=== PATIENT | male | born 1990 | race Caucasian/White ===

== ENCOUNTER 2024-12-21 09:10 | Emergency (ER) | payer BC ==
[2024-12-21] MEDS ORDERED: FAMOTIDINE 20 MG/2 ML VIAL IV ONE (09:52)
[2024-12-21 10:01] LABS: Absolute Lymphocytes (CBC) 1.7 K/uL (0.7-4.9); Hematocrit 41.3 % (39.6-49.0); Hemoglobin 14.4 g/dL (13.6-17.9); MCH 30.7 pg (27.0-35.0); MCHC 34.8 g/dL (32.0-36.0); MCV 88.4 fL (80-100); MPV 8.3 fL (7.6-11.3); Nucleated RBC Absolute Count 0.0 (0-0); Nucleated Red Blood Cells % 0.1 % (0-0); RBC Red Blood Cell Count 4.68 M/uL (4.33-5.43); White Blood Count 6.70 thou/uL (4.3-10.9)
[2024-12-21 10:27] LABS: Anion Gap 9.4 mEq/L (5.0-15.0); Glucose Level 125.0 mg/dL (74-106); Potassium 4.4 mEq/L (3.5-5.1)
[2024-12-21 10:28] LABS: ALT/SGPT 84.0 U/L (16-61); AST/SGOT 25.0 U/L (15-37); Albumin 3.9 g/dL (3.4-5.0); Albumin/Globulin Ratio 1.0 (1.1-1.8); Alkaline Phosphatase 61.0 U/L (45-117); BUN Blood Urea Nitrogen 24.0 mg/dL (7-18); Globulin 4.1 g/dL (2.3-3.5); Lipase 50.0 U/L (13-75)
--- NOTE | 2024-12-21 10:55 | RAD REPORT ---
EXAMINATION: CT ABDOMEN AND PELVIS WITHOUT CONTRAST CLINICAL INDICATION: Nausea / vomiting;GI bleed TECHNIQUE: CT abdomen and pelvis was performed, without IV contrast, as per department protocol. Axia l, sagittal and coronal reconstructions were obtained. One or more of the following dose reduction techniques were used: Automated exposure control, adjustment of the mA and kV according to the patien t size, and iterative reconstruction. Unless otherwise specified, incidental findings do not require dedicated imaging follow-up. COMPARISON: No prior exam. FINDINGS: The lack of intravenous contrast limits the sensitivity of this exam for evaluation of solid visceral organs, vascular structures, and retroperitoneum. LOWER CHEST: The visualized lung bases are clear. LIVER:Significant fatty liver with hepatomegaly present. No focal lesion or biliary dilitation. Keshawn sly unremarkable gallbladder. SPLEEN: Normal size. No focal lesion. PANCREAS: No mass, ductal dilation, or irish-pancreatic fluid. ADRENALS: Normal; no mass. KIDNEYS AND URETERS: Normal size and contour. No hydronephrosis. URINARY BLADDER: Normal contour. GASTROINTESTINAL TRACT: No evidence of bowel obstruction, significant free fluid, free air or abscess . APPENDIX: Normal appendix. LYMPH NODES: No lymphadenopathy. MUSCULOSKELETAL: No acute or suspicious osseous abnormality. IMPRESSION: No acute abnormalities in the abdomen or pelvis, with evaluation limited by lack of IV contrast. Advanced fatty liver.
--- NOTE | 2024-12-21 10:57 | RAD REPORT ---
EXAM: CTA of the abdomen and pelvis HISTORY: Pain, bleeding GI BLEED COMPARISON: None TECHNIQUE: Multiple contiguous axial images were obtained a CTA of the abdomen and pelvis with contra st per angiographic protocol. This involves 3D reconstructions, MIPs, volume rendered images and/or shaded surface rendering. One or more of the following dose reduction techniques were used: Automated exposure control, adjustment of the mA and/or kV according to patient size, and/or iterative reconstruction. Unless otherwise specified, incidental findings do not require dedicated imaging foll ow-up. Sagittal and coronal 3-D MIP reformats were performed. FINDINGS: DESCENDING THORACIC AORTA: Included infeior aspect demonstrates normal caliber without evidence of d issection or aneurysmal dilatation. ABDOMINAL AORTA: Normal caliber without evidence of dissection or aneurysmal dilatation. CELIAC TRUNK: Patent. SMA: Patent NALINI: Patent RENAL ARTERIES: Patent. No significant stenosis. Small bilateral accessory renal arteries. LIVER: Advanced fatty infiltration.. SPLEEN: Unremarkable. PANCREAS: Unremarkable. KIDNEYS: Unremarkable. ADRENALS: Unremarkable. BOWEL: Unremarkable. RETROPERITONEUM: No lymphadenopathy. BONES: Unremarkable ADDITIONAL FINDINGS: Small fat-containing umbilical hernia. IMPRESSION: No significant flow abnormality is detected.
--- NOTE | 2024-12-21 11:46 | EDPHYS ---
Physician Documentation [facility] Name: Shad Garcia Age: 34 yrs Sex: Male : 1990 Arrival Date: 12/21/2024 Time: 09:10 Bed 8 Private MD: ED Physician Cindy Romero HPI: 12/21 11:46 This 34 yrs old Male presents to ER via Ambulatory with complaints of Bloody gb1 Stools, Vomiting - blood. 11:48 This 34 yrs old Male presents to ER via Ambulatory with complaints of Bloody gb1 Stools, Vomiting - blood. 11:48 34-year-old male comes with dark stools and blood-tinged sputum but is also was dark. gb1 He drank 5 to 616 ounce beers last evening and also ate some Oreos along with that. He denies any pain at this time and denies any bright red blood per rectum. He has otherwise no fever or chills he has history of hypertension anxiety and Rhina-Yost tear.. Historical: - Allergies: 09:35 No Known Allergies; ss - Home Meds: 09:35 Lisinopril [Active]; Clonazepam Oral [Active]; Protonix [Active]; ss - PMHx: 09:35 hypertension; Anxiety; Rhina-Yost tear; ss - PSHx: 09:35 None; ss - Immunization history:: Adult Immunizations up to date. - Infectious Disease History:: Denies. - Social history:: Smoking status: Patient denies any tobacco usage or history of. Exam: 11:46 Constitutional: This is a well developed, well nourished patient who is awake, alert, gb1 and in no acute distress. Head/Face: Normocephalic, atraumatic. Eyes: Pupils equal round and reactive to light, extra-ocular motions intact. Lids and lashes normal. Conjunctiva and sclera are non-icteric and not injected. Cornea within normal limits. Periorbital areas with no swelling, redness, or edema. ENT: Nares patent. No nasal discharge, no septal abnormalities noted. Tympanic membranes are normal and external auditory canals are clear. Oropharynx with no redness, swelling, or masses, exudates, or evidence of obstruction, uvula midline. Mucous membranes moist. Neck: Trachea midline, no thyromegaly or masses palpated, and no cervical lymphadenopathy. Supple, full range of motion without nuchal rigidity, or vertebral point tenderness. No Meningismus. Chest/axilla: Normal chest wall appearance and motion. Nontender with no deformity. No lesions are appreciated. Cardiovascular: Regular rate and rhythm with a normal S1 and S2. No gallops, murmurs, or rubs. Normal PMI, no JVD. No pulse deficits. Respiratory: Lungs have equal breath sounds bilaterally, clear to auscultation and percussion. No rales, rhonchi or wheezes noted. No increased work of breathing, no retractions or nasal flaring. Abdomen/GI: Soft, non-tender, with normal bowel sounds. No distension or tympany. No guarding or rebound. No evidence of tenderness throughout. Skin: Warm, dry with normal turgor. Normal color with no rashes, no lesions, and no evidence of cellulitis. MS/ Extremity: Pulses equal, no cyanosis. Neurovascular intact. Full, normal range of motion. Vital Signs: 09:30 BP 145 / 87; Pulse 95; Resp 16; Temp 98.2(O); Pulse Ox 99% on R/A; Weight 104.33 kg; ss Height 6 ft. 4 in. ; Pain 0/10; 11:00 BP 154 / 79; Pulse 95; Resp 18; Pulse Ox 100% on R/A; mb9 12:00 BP 135 / 89; Pulse 91; Resp 17; Pulse Ox 97% ; Pain 0/10; ll1 09:30 Body Mass Index 28.00 (104.33 kg, 193.04 cm) ss 09:30 Pain Scale: Adult ss 12:00 Pain Scale: Adult ll1 MDM: 09:22 Medical Screening Exam initiated gb1 11:46 Data reviewed: vital signs, nurses notes. gb1 11:48 ED course: 34-year-old male with chief complaint of bloody stools and vomiting blood. gb1 He has a history of a Rhina-Yost tear and drank heavily last night alcohol and vomited as well as had some dark liquid stool. Concern for alcoholic gastritis versus Rhina-Yost tear versus peptic ulcer disease with slow GI bleed. H\T\H is stable otherwise patient is vitally stable and my plan is to discharge him home with outpatient follow-up for upper and lower endoscopy by gastroenterology Dr. Puentes. Patient is compliant with this plan of care discharge and we discussed alcohol cessation and diet modification to prevent acute gastritic symptoms-- as well to which he is compliant to prior to discharge him today.. 12/21 09:45 Order name: CBC with Diff; Complete Time: 10:08 gb1 12/21 09:45 Order name: CMP; Complete Time: 10:31 gb1 12/21 09:45 Order name: Lipase; Complete Time: 10:31 gb1 12/21 09:59 Order name: Abdomen Angio; Complete Time: 11:37 EDMS 12/21 09:59 Order name: Pelvis Angio; Complete Time: 11:37 EDMS 12/21 09:59 Order name: Abdomen ; Complete Time: 11:37 EDNH 12/21 09:45 Order name: IV Saline Lock; Complete Time: 09:53 gb1 12/21 09:45 Order name: Labs collected and sent; Complete Time: 09:53 gb Administered Medications: 09:53 Drug: Famotidine IVP 20 mg IVP once; dilute with 10 mL 0.9% NaCl; give over 2 minutes mb9 Route: IVP; Site: right antecubital; 12:01 Follow up: Response: No adverse reaction ll1 Disposition Summary: 12/21/24 11:45 Discharge Ordered Notes: Location: Home gb1 Condition: Stable gb1 Diagnosis - Alcoholic gastritis with bleeding gb1 Followup: gb1 - With: Osvaldo Delacruz MD - When: 1 week - Reason: Further diagnostic work-up Discharge Instructions: - Discharge Summary Sheet gb1 - Gastritis, Adult, [id number] gb1 - Upper Gastrointestinal Bleeding gb1 Forms: - Work release form bd - Medication Reconciliation Form gb1 - Antibiotic Education gb1 - Prescription Opioid Use gb1 - Patient Portal Instructions gb1 - Leadership Thank You Letter gb1 Signatures: Dispatcher [employer] Yenni Silverio RN RN ss Wilkerson, Mary Beth RN RN mb9 Cindy Romero MD MD gb1 Moe Barbosa RN ll1 Corrections: (The following items were deleted from the chart) 09:45 09:45 CBC+H.LAB.BRZ ordered. EDMS EDMS 09:45 09:45 COMPREHENSIVE METABOLIC PANEL+C.LAB.BRZ ordered. EDMS EDMS 09:45 09:45 LIPASE+C.LAB.BRZ ordered. EDMS EDMS 09:45 09:45 Abdomen Pelvis W Con+CT.RAD.BRZ ordered. EDMS EDMS
--- NOTE | 2024-12-21 11:46 | ER ---
Nurse's Notes [facility] Name: Shad Garcia Age: 34 yrs Sex: Male : 1990 Arrival Date: 12/21/2024 Time: 09:10 Bed 8 Private MD: Diagnosis: Alcoholic gastritis with bleeding Presentation: 12/21 09:30 Chief complaint: Patient states: "I woke up this morning and vomited once and it was ss black. I ate oreos, so I thought it was just that, but I had a BM and it was normal, but then I had another one at 0830 and it was diarrhea and pure black. It may just be oreos, but I have a hx of a Rhina-Yost tear.". Coronavirus screen: Client denies travel out of the [place] in the last 14 days. Ebola Screen: Patient denies exposure to infectious person. Patient denies travel to an Ebola-affected area in the 21 days before illness onset. Initial Sepsis Screen: Does the patient meet any 2 criteria? No. Patient's initial sepsis screen is negative. Does the patient have a suspected source of infection? No. Patient's initial sepsis screen is negative. Risk Assessment: Do you want to hurt yourself or someone else? Patient reports no desire to harm self or others. Onset of symptoms was December 21, 2024. 09:30 Method Of Arrival: Ambulatory ss 09:30 Acuity: NASIMA 3 ss Historical: - Allergies: 09:35 No Known Allergies; ss - Home Meds: 09:35 Lisinopril [Active]; Clonazepam Oral [Active]; Protonix [Active]; ss - PMHx: 09:35 hypertension; Anxiety; Rhina-Yost tear; ss - PSHx: 09:35 None; ss - Immunization history:: Adult Immunizations up to date. - Infectious Disease History:: Denies. - Social history:: Smoking status: Patient denies any tobacco usage or history of. Screenin:25 [facility] Fall Risk Assessment (Adult) History of falling in the last 3 months, mb9 including since admission No falls in past 3 months (0 pts) Confusion or Disorientation No (0 pts) Intoxicated or Sedated No (0 pts) Impaired Gait No (0 pts) Mobility Assist Device Used No (0 pt) Altered Elimination No (0 pt) Score/Fall Risk Level 0 - 2 = Low Risk Oriented to surroundings, Maintained a safe environment, Educated pt \\T\\ family on fall prevention, incl call for assistance when getting out of bed. Abuse screen: Denies threats or abuse. Nutritional screening: No deficits noted. Tuberculosis screening: No symptoms or risk factors identified. Assessment: 09:39 General: Appears in no apparent distress. Behavior is calm, cooperative. Pain: Denies mb9 pain. Neuro: Sin Agitation-Sedation Scale (RASS): 0 - Alert and Calm Level of Consciousness is awake, alert, obeys commands, Oriented to person, place, time, situation, Appropriate for age. Cardiovascular: Heart tones S1 S2 present Patient's skin is warm and dry. Respiratory: Airway is patent Respiratory effort is even, unlabored, Respiratory pattern is regular, symmetrical, Breath sounds are clear bilaterally. GI: Abdomen is round non-distended, Bowel sounds hyperactive in right upper quadrant, left upper quadrant, right lower quadrant and left lower quadrant Abd is soft and non tender X 4 quads. Reports diarrhea, bloody stool, nausea. : No signs and/or symptoms were reported regarding the genitourinary system. EENT: No signs and/or symptoms were reported regarding the EENT system. Derm: Skin is pink, warm \\T\\ dry. Musculoskeletal: Range of motion: intact in all extremities. Vital Signs: 09:30 BP 145 / 87; Pulse 95; Resp 16; Temp 98.2(O); Pulse Ox 99% on R/A; Weight 104.33 kg; ss Height 6 ft. 4 in. ; Pain 0/10; 11:00 BP 154 / 79; Pulse 95; Resp 18; Pulse Ox 100% on R/A; mb9 12:00 BP 135 / 89; Pulse 91; Resp 17; Pulse Ox 97% ; Pain 0/10; ll1 09:30 Body Mass Index 28.00 (104.33 kg, 193.04 cm) ss 09:30 Pain Scale: Adult ss 12:00 Pain Scale: Adult ll1 ED Course: 09:15 Patient arrived in ED. im 09:17 Cindy Romero MD is Attending Physician. gb1 09:23 Myesha Felipe RN is Primary Nurse. mb9 09:25 Arm band placed on. mb9 09:25 Placed in gown. Bed in low position. Call light in reach. Side rails up X 1. Provided mb9 Education on: press call light if needing anything. Client placed on continuous cardiac and pulse oximetry monitoring. NIBP monitoring applied. packing room supervisor on. Door closed. Noise minimized. Warm blanket given. Pillow given. 09:35 Triage completed. ss 09:39 Initial lab(s) drawn, by me, sent to lab. Inserted saline lock: 20 gauge in right mb9 antecubital area, using aseptic technique. Blood collected. Flushed with 10 mL NS. 09:40 No provider procedures requiring assistance completed. mb9 09:53 CBC with Diff Sent. mb9 09:53 CMP Sent. mb9 09:53 Lipase Sent. mb9 10:28 Abdomen Angio In Process Unspecified. EDMS 10:28 Pelvis Angio In Process Unspecified. EDMS 10:28 Abdomen In Process Unspecified. EDMS 11:45 Osvaldo Delacruz MD is Referral Physician. gb1 12:01 IV discontinued, intact, bleeding controlled, No redness/swelling at site. Pressure ll1 dressing applied. Administered Medications: 09:53 Drug: Famotidine IVP 20 mg IVP once; dilute with 10 mL 0.9% NaCl; give over 2 minutes mb9 Route: IVP; Site: right antecubital; 12:01 Follow up: Response: No adverse reaction ll1 Medication: 09:26 VIS not applicable for this client. mb9 Outcome: 11:45 Discharge ordered by . gb1 12:01 Discharged to home ambulatory, 1 12:01 Condition: stable 12:01 Discharge instructions given to patient, Instructed on discharge instructions, follow up and referral plans. Demonstrated understanding of instructions, follow-up care, 12:02 Patient left the ED. ll1 Signatures: Dispatcher [employer] EDMS Yenni Westbrook RN RN ss Moe Barbosa RN RN ll1 Myesha Felipe RN RN mb9 Lu Becerril Gina, MD MD gb1
[2024-12-21 12:21] VITALS: TEMP 98.2
[2024-12-21 12:25] VITALS: BP 135/89; O2SAT 97
== END 2024-12-21 12:02 | disposition home or self-care (01) ==
LOC: ER 09:10
DX: K29.21 Alcoholic gastritis with bleeding (principal); I10 Essential (primary) hypertension; F41.9 Anxiety disorder, unspecified
CPT/HCPCS: 85025; 36415; 83690; 80053; 72191; 74175; 74176; 96374; 99285; Q9967; 74174